=== PATIENT | female | born 1950 | race Two or more races ===

== ENCOUNTER 2021-11-26 14:31 | Emergency (ER) | payer OTHER ==
[~2021-11-26] VITALS: Ht 149.9 cm; Wt 54.4 kg
[~2021-11-26 14:31] MED LIST: COREG CR10 MG PO; COZAAR100 MG PO; DICYCLOMINE HCL20 MG; IBUPROFEN800 MG PO; NEURONTIN300 MG PO; SYNTHROID75 MCG
== END 2021-11-26 18:17 | disposition home or self-care (01) ==
LOC: ER 14:31
DX: M54.31 Sciatica, right side (principal); I10 Essential (primary) hypertension

== ENCOUNTER 2022-11-21 10:52 | Outpatient (CLI) | payer OTHER | END 2022-11-21 10:53 | disposition home or self-care (01) | LOC: LAB 10:52 | PROVIDERS: ATTEND Internal Medicine Gastroenterology | DX: Z11.52 Encounter for screening for COVID-19 (principal); Z20.822 Contact with and (suspected) exposure to COVID-19; Z20.828 Contact with and (suspected) exposure to other viral communicable diseases ==

== ENCOUNTER 2022-11-29 14:07 | Emergency (ER) | payer OTHER ==
[~2022-11-29] VITALS: Ht 121.9 cm; Wt 54.4 kg
[2022-11-29] MEDS ORDERED: TOPROL XL25 M1 PO (14:48)
[2022-11-29] MEDS ORDERED: TYLENOL ARTHRI650 MG PO (17:19)
== END 2022-11-29 21:00 | disposition home or self-care (01) ==
LOC: ER 14:07
DX: S60.211A Contusion of right wrist, initial encounter (principal); W18.39XA Other fall on same level, initial encounter; Y93.89 Activity, other specified; Y92.018 Other place in single-family (private) house as the place of occurrence of the external cause; S50.11XA Contusion of right forearm, initial encounter; Z88.6 Allergy status to analgesic agent

== ENCOUNTER → 2022-12-22 | Outpatient (CLI) | payer OTHER ==
[~2022-12-22] MED LIST changes: +TOPROL XL25 M1 PO; +TYLENOL ARTHRI650 MG PO
== END | disposition home or self-care (01) ==
LOC: LAB 10:23
PROVIDERS: ATTEND Orthopaedic Surgery Hand Surgery
DX: D68.9 Coagulation defect, unspecified (principal)

== ENCOUNTER 2022-12-29 12:22 | Outpatient (CLI) | payer OTHER | END 2022-12-29 12:25 | disposition home or self-care (01) | LOC: LAB 12:22 | PROVIDERS: ATTEND Surgery | DX: Z11.52 Encounter for screening for COVID-19 (principal); Z20.822 Contact with and (suspected) exposure to COVID-19; Z03.818 Encounter for observation for suspected exposure to other biological agents ruled out ==

== ENCOUNTER 2023-01-24 11:43 | Outpatient (CLI) | payer OTHER | END 2023-01-24 11:49 | disposition home or self-care (01) | LOC: RAD 11:43 | PROVIDERS: ATTEND Orthopaedic Surgery Hand Surgery | DX: M25.542 Pain in joints of left hand (principal) ==

== ENCOUNTER 2023-05-11 11:42 | Outpatient (CLI) | payer OTHER | END 2023-05-11 11:50 | disposition home or self-care (01) | LOC: RAD 11:42 | PROVIDERS: ATTEND Orthopaedic Surgery Hand Surgery | DX: S62.001P Unspecified fracture of navicular [scaphoid] bone of right wrist, subsequent encounter for fracture with malunion (principal) ==

== ENCOUNTER 2023-08-02 19:49 | Emergency (ER) | payer OTHER ==
[~2023-08-02] VITALS: Ht 134.6 cm; Wt 56.2 kg
[2023-08-02 22:31] LABS: HEMATOCRIT 39.4 % (36.0-45.00); HEMOGLOBIN 13.3 g/dL (12.0-15.00); MEAN CELL VOLUME 93.8 fL (80.00-100.00); MEAN CORPUSCULAR HEMOGLOBIN 31.6 pg (27.00-32.0); MEAN CORPUSCULAR HGB CONC 33.7 g/dl (32.0-36.0); PLATELET COUNT 259 K/uL (150-450); RED BLOOD COUNT 4.21 M/uL (4.00-6.00)
[2023-08-02 22:34] LABS: CALCIUM 9.3 mg/dL (8.5-10.1); CREATININE SERUM 0.6 mg/dL (0.55-1.02); GFR 98.83; POTASSIUM 3.59 mEq/L (3.5-5.1)
== END 2023-08-03 00:24 | disposition home or self-care (01) ==
LOC: ER 19:49
PROVIDERS: General Practice
DX: I10 Essential (primary) hypertension (principal); Z88.6 Allergy status to analgesic agent
CPT/HCPCS: 36415; 93005; 96365; 99284; J3490